=== PATIENT | male | born 1950 | race Caucasian/White ===

== ENCOUNTER 2021-06-26 23:32 | Emergency (ER) | payer OTHER, SELFPAY ==
--- NOTE | ~2021-06-26 | XR_ITS ---
EXAMINATION: XR CHEST CLINICAL INFORMATION: Fall COMPARISON: 10/19/2007 TECHNIQUE: Frontal view of the chest was obtained. FINDINGS: The lungs are well expanded. Prominent markings at both lung bases may represent scarring or atelectasis. No dense consolidation. No edema or effusion. No pneumothorax. The cardiomediastinal silhouette is normal in size with a calcified aorta. No acute osseous abnormality. XR/XR chest 1V IMPRESSION: No acute pulmonary finding. No displaced fractures.
--- NOTE | ~2021-06-26 | CT_ITS ---
EXAMINATION: NONCONTRAST HEAD CT NONCONTRAST CERVICAL SPINE CT INDICATION INFORMATION: Fall COMPARISON: None TECHNIQUE: Separate noncontrast CT examinations of the head and cervical spine were performed. Coronal and sagittal images were created for each examination at the technologist workstation. This CT examination was performed using dose optimization techniques as appropriate, variously including the following: *Automated exposure control *Adjustment of mA and/or kV according to patient size (this includes techniques or standardized protocols for targeted exams where dose is matched to indication/reason for exam; i.e. extremities or head) *Use of iterative reconstruction technique DLP: 1330 mGy-cm FINDINGS: Head: There is no evidence of acute intracranial hemorrhage or territorial infarction. No abnormal mass effect or midline shift is seen. Ho to white matter differentiation is well preserved. No extra-axial fluid collections are identified. No hydrocephalus. Proportional prominence of the ventricles and sulcal spaces is consistent with mild volume loss. Patchy periventricular and deep white matter hypoattenuation is consistent with mild small vessel ischemic changes. No acute osseous or soft tissue abnormality. Bilateral chronic lamina papyracea depression. Partial right mastoid air cell effusion. The left mastoid air cells and visualized portions of the paranasal sinuses are well aerated. Cervical spine: There is anatomic alignment of the vertebral bodies and posterior elements. The atlantoaxial and atlantooccipital articulations are intact. Vertebral body heights are maintained. There is multilevel intervertebral disc space narrowing with endplate osteophyte formation and facet arthropathy. No evidence of acute fracture. No prevertebral soft tissue swelling. Centrilobular emphysema noted at the lung apices. The thyroid gland is either absent or atrophic. CT/CT cervical spine wo con IMPRESSION: 1. No acute intracranial finding. 2. No fracture or malalignment of the cervical spine. Mild to moderate multilevel degenerative change.
[2021-06-26 23:45] VITALS: BP 130/84; PULSE 96; O2SAT 94
[2021-06-26 23:46] VITALS: BP 142/88; PULSE 89; RESP 18; TEMP 36.5; O2SAT 94; BMI 22.9
[2021-06-26 23:49] VITALS: BP 142/88; PULSE 89; RESP 18; TEMP 36.6; O2SAT 94
--- NOTE | 2021-06-27 00:09 | ED.FALL ---
HPI - Fall General Chief Complaint: Fall Stated Complaint: fall etoh Time Seen by Provider: 06/27/21 00:07 History of Present Illness HPI Narrative: Patient is a 70-year-old male status post accidental fall. Patient was intoxicated at a bar. Subsequently fell. Hit his head. There was no loss of consciousness. Patient is not on any blood thinners. Question loss of consciousness. Patient's C-spine was immobilize due to precautions. No chest pain. No abdominal pain. No pain in the extremities. Patient from a bar. Patient on no medications. He did claim P had a tetanus shot within the last year. Positive abrasion to the corner of right eye. Dry blood noted. Related Data Allergies Allergy/AdvReac Type Severity Reaction Status Date / Time No Known Allergies Allergy Verified 06/27/21 00:07 Review of Systems Review of Systems: No fever no chills no chest pain or shortness of breath no nausea no vomiting No focal weakness All systems reviewed otherwise negative PMFSH Past Medical History Attestation statement: The following information was validated with the patient. Social History Social History Alcohol intake: unknown Use of substances other than those prescribed or required for medical reasons: Unknown Advance Directives: No Physical Exam Vital Signs: Vital Signs: Last Vital Signs Temp 97.9 F 06/26/21 23:49 Pulse 89 06/26/21 23:49 Resp 18 06/26/21 23:49 BP 142/88 H 06/26/21 23:49 Pulse Ox 94 06/26/21 23:49 Body Mass Index 22.9 Appearance: Alert. Oriented X3. No acute distress. Eyes: Pupils equal, round and reactive to light. Positive dry blood to the corner of right eye. Extraocular muscle was intact. Gross vision intact. ENT: Pharynx normal. Neck: Normal inspection. No lymph nodes noted. No crepitus. C-spine was immobilized due to caution CVS: Normal heart rate and rhythm. Pulses normal. Normal S1 and S2 Respiratory: No respiratory distress. Breath sounds normal. No Wheezing. No rales Abdomen: Soft and nontender. No rigidity. No distention. good BS x4 Skin: Skin warm and dry. Normal skin color. Normal skin turgor. Extremities: No lower extremity edema. Neurovascular intact to all extremities. No Lacerations. No Rash Neuro: Oriented X 3. No motor deficit. No sensory deficit. Moving all extermities. No slurred speech MDM - Fall MDM Narrative Medical decision making narrative: CT scan of the head and C-spine were both grossly negative for any acute evidence of fracture or bleeding. Patient's alcohol was over 300 likely the cause of patient's fall. Currently awaiting sobering awaiting family member did take patient home. In stable condition. Medical Records Attestation: I reviewed the patient's medical records. Lab Data Attestation: I reviewed the patient's lab results. Result diagrams: 06/27/21 00:26 06/27/21 00:26 Labs: Lab Results 06/27/21 06/27/21 06/27/21 Range/Units 00:26 00:26 00:26 WBC 7.8 (4.8-10.8) X10*3/uL RBC 4.67 (4.60-5.80) X10*6/uL Hgb 16.1 (14.0-18.0) g/dl Hct 45.9 (42-52) % MCV 98.3 H (80-98) fL MCH 34.5 H (27.0-33.0) pg MCHC 35.1 (31.0-36.0) g/dl RDW 12.8 (11.0-16.0) % Plt Count 215 (160-400) X10*3/uL MPV 8.4 L (9.4-12.4) fL Immature Gran % (Auto) 0.3 (0.0-0.4) % Neut % (Auto) 58.7 (45-73) % Lymph % (Auto) 30.6 (20-40) % [place] % (Auto) 8.6 (2-11) % Eos % (Auto) 1.4 (0-4) % Baso % (Auto) 0.4 (0-2) % Lymph # (Auto) 2.4 (1.2-4.9) X10*3/uL [place] # (Auto) 0.7 (0.1-1.2) X10*3/uL Eos # (Auto) 0.1 (0.0-0.4) X10*3/uL Baso # (Auto) 0.0 (0.0-0.2) X10*3/uL Abs Immat Gran (auto) 0.02 (0.00-0.03) X10*3/uL Absolute Neuts (auto) 4.6 (2.0-8.3) X10*3/uL Absolute Nucleated RBC 0.000 (0.0-0.012) X10*3/uL Nucleated RBC % (auto) 0.0 (0.0-0.2) /100WBC Sodium 139 (135-145) mmol/L Potassium 3.8 (3.3-5.1) mmol/L Chloride 101 (96-108) mmol/L Carbon Dioxide 26 (22-29) mmol/L Anion Gap 16 (12-20) BUN 9 (9-16) mg/dL Creatinine 0.86 (0.5-1.4) mg/dL Estim Creat Clear Calc 82.0 Estimated GFR > 60 Random Glucose 109 (60-115) mg/dL Calcium 9.4 (8.4-10.2) mg/dL Ethyl Alcohol 327 H* mg/dL Discharge Plan Discharge Clinical Impression: Head injury, Alcohol intoxication Patient Disposition: Home, Self-Care Instructions: Head Injury (ED), Alcohol Intoxication (ED) Referrals: Physician,Unknown [Primary Care Provider] - 2 days (Please stop drinking alcohol and go to detox.)
[2021-06-27 00:30] LABS: MANUAL DIFF FLAG NO
[2021-06-27 00:31] LABS: Basophils Percent Auto 0.4 % (0-2); Eosinophils Absolute Auto 0.1 X10*3/uL (0.0-0.4); Eosinophils Percent Auto 1.4 % (0-4); Hematocrit 45.9 % (42-52); Hemoglobin 16.1 g/dl (14.0-18.0); Imm Gran Abs Auto 0.02 X10*3/uL (0.00-0.03); Imm Gran Pct Auto 0.3 % (0.0-0.4); Lymphocytes Absolute Auto 2.4 X10*3/uL (1.2-4.9); Lymphocytes Percent Auto 30.6 % (20-40); Mean Corpuscular HGB Conc 35.1 g/dl (31.0-36.0); Mean Corpuscular Hemoglobin 34.5 pg (27.0-33.0); Mean Corpuscular Volume 98.3 fL (80-98); Mean Platelet Volume 8.4 fL (9.4-12.4); Monocytes Absolute Auto 0.7 X10*3/uL (0.1-1.2); Monocytes Percent Auto 8.6 % (2-11); Neutrophils Absolute Auto 4.6 X10*3/uL (2.0-8.3); Neutrophils Percent Auto 58.7 % (45-73); Platelet Count 215 X10*3/uL (160-400); Red Blood Count 4.67 X10*6/uL (4.60-5.80); Red Cell Distribution Width 12.8 % (11.0-16.0); White Blood Count 7.8 X10*3/uL (4.8-10.8)
[2021-06-27 00:55] LABS: Ethanol 327 mg/dL
[2021-06-27 00:56] LABS: Anion Gap 16 (12-20); Blood Urea Nitrogen 9 mg/dL (9-16); Calcium 9.4 mg/dL (8.4-10.2); Carbon Dioxide 26 mmol/L (22-29); Chloride 101 mmol/L (96-108); Estimated Glomerular Filt Rate > 60; Glucose Random 109 mg/dL (60-115); Potassium 3.8 mmol/L (3.3-5.1); Sodium 139 mmol/L (135-145)
--- NOTE | 2021-06-27 02:13 | PC.NURSE ---
Pt alert and oriented, calm and cooperative. Pt educated on CT scan results. Pt denies pain. Pt moving head and neck without issues. Lacerations to forehead superficial and not bleeding. No IV in place. Pt ambulated in room to wheelchair. Pt bernieew Nick picked up patient to take home, pt transferred into car without issues. Vitals stable.
[2021-06-27 02:14] VITALS: BP 156/80; PULSE 86; RESP 18; TEMP 37; O2SAT 95
== END 2021-06-27 02:14 | disposition home or self-care (01) ==
PROVIDERS: Emergency Provider Emergency Medicine Emergency Medical Services
DX: S09.90XA Unspecified injury of head, initial encounter (principal); G44.309 Post-traumatic headache, unspecified, not intractable; F10.129 Alcohol abuse with intoxication, unspecified; M54.2 Cervicalgia; R07.81 Pleurodynia; W01.0XXA Fall on same level from slipping, tripping and stumbling without subsequent striking against object, initial encounter; Y90.8 Blood alcohol level of 240 mg/100 ml or more; Y93.9 Activity, unspecified; Y92.9 Unspecified place or not applicable; Y99.9 Unspecified external cause status; Z71.41 Alcohol abuse counseling and surveillance of alcoholic; Z79.899 Other long term (current) drug therapy
CPT/HCPCS: 36415; 70450; 71045; 72125; 80048; 82077; 85025; 99284

== ENCOUNTER 2024-08-02 23:33 | Emergency (ER) | payer MEDICARE, MEDICAID, SELFPAY ==
[2024-08-02 23:37] VITALS: BP 100/62; BP 112/74; PULSE 86; PULSE 99; RESP 15; TEMP 36.5; O2SAT 96; O2SAT 99; BMI 26.6
[2024-08-02 23:45] VITALS: BP 112/74; PULSE 94; RESP 16; TEMP 36.5; O2SAT 99
[2024-08-03 01:07] LABS: MANUAL DIFF FLAG NO
[2024-08-03 01:08] LABS: Basophils Percent Auto 0.3 % (0-2); Hematocrit 32.1 % (42.0-52.0); Hemoglobin 10.7 g/dl (14.0-18.0); Imm Gran Abs Auto 0.03 X10*3/uL (0.00-0.03); Imm Gran Pct Auto 0.3 % (0.0-0.4); Lymphocytes Absolute Auto 0.7 X10*3/uL (1.2-4.9); Lymphocytes Percent Auto 6.2 % (20-40); Mean Corpuscular HGB Conc 33.3 g/dl (31.0-36.0); Mean Corpuscular Hemoglobin 30.1 pg (27.0-33.0); Mean Corpuscular Volume 90.4 fL (80.0-98.0); Mean Platelet Volume 8.2 fL (9.4-12.4); Monocytes Absolute Auto 0.9 X10*3/uL (0.1-1.2); Monocytes Percent Auto 8.7 % (2-11); Neutrophils Absolute Auto 8.8 x10*3/uL (2.0-8.3); Neutrophils Percent Auto 84.5 % (45-73); Platelet Count 216 X10*3/uL (160-400); Red Blood Count 3.55 X10*6/uL (4.60-5.80); Red Cell Distribution Width 13.3 % (11.0-16.0); White Blood Count 10.5 X10*3/uL (4.8-10.8)
[2024-08-03 01:23] LABS: Alanine Aminotransferase 10 U/L (0-40); Alkaline Phosphatase 93 U/L (39-117); Anion Gap 18 (12-20); Aspartate Amino Transferase 35 U/L (5-37); Bilirubin Total 0.5 mg/dL (0.0-1.0); Blood Urea Nitrogen 21 mg/dL (9-16); Calcium 9.6 mg/dL (8.4-10.2); Carbon Dioxide 23 mmol/L (22-29); Chloride 103 mmol/L (96-108); Creatinine Clr Calc Pharmacy 52.1; Estimated Glomerular Filt Rate 58; Glucose Random 96 mg/dL (60-115); Potassium 4.5 mmol/L (3.3-5.1); Sodium 139 mmol/L (135-145); Total Protein 7.2 g/dL (6.5-8.0)
[2024-08-03 01:34] LABS: Appearance Urine Clear; Color Urine Dark Yellow; Glucose Urine UA Negative (Negative); Leukocyte Esterase Urine Trace (Negative); Nitrite Urine Negative (Negative); PH 6.5 (5.0-9.0); UMIC TRIGGER UACC YES; Urine Blood Negative (Negative); Urine Ketones 40 mg/dL (Negative); Urine Protein Negative (Neg-Trace)
[2024-08-03 01:48] LABS: Bacteria Urine None Seen (None Seen); RBC Urine 0-2 /HPF (0-2); Squamous Epithelial Cell Urine 0-2 /HPF (0-2); WBC Urine 0-5 /HPF (0-5)
--- NOTE | 2024-08-03 02:27 | ED_ITS ---
HPI - Weakness General Chief complaint: Weakness Stated complaint: WEAKNESS OF LEGS Time Seen by Provider: 08/03/24 00:08 Source: patient and EMS Mode of arrival: EMS Limitations: no limitations History of Present Illness ED Provider: Dr. Cadena HPI Narrative: 73yo male presents with weakness. He states at times his leg don't feel like working but tonight it was the worst. He denies chest pain, shortness of breath MD Complaint: generalized weakness Related Data Previous Rx's ?Medication ?Instructions ?Recorded ferrous sulfate 325 mg (65 mg 325 mg PO DAILY #30 tabs 08/03/24 iron) tablet folic acid 1 mg tablet 1 mg PO DAILY #30 tabs 08/03/24 Allergies Allergy/AdvReac Type Severity Reaction Status Date / Time No Known Allergies Allergy Verified 08/02/24 23:41 Review of Systems 2 Review of Systems: Yes all other systems are reviewed and are negative Neurologic: Denies Sensory deficit (Neuro) [facility] Social History Social History Alcohol intake: current Alcohol intake frequency: 3 or more drinks per day Alcohol type: hard liquor Smoked in Last 30 Days: Yes Use of substances other than those prescribed or required for medical reasons: No Advance Directives: No Advance Directives Information Provided: Yes Do you have a plan to hurt others: No Plan Physical Exam 2 Vital Signs: Vital Signs: Last Vital Signs Temp 97.7 F 08/02/24 23:45 Pulse 94 08/02/24 23:45 Resp 16 08/02/24 23:45 BP 112/74 08/02/24 23:45 Pulse Ox 99 08/02/24 23:45 O2 Del Method Room Air 08/02/24 23:45 BMI result Body Mass Index 26.6 Const: Other: very unkept male Nutritional Appearance: average body habitus Orientation/consciousness: oriented to person and patient oriented x3 Limitations: no limitations HEENT: Head: Yes normal to inspection Ears: external ears normal General nose exam: Normal external nose present Mouth: Normal oral and palatal mucosa present and oropharynx normal Throat: Yes posterior oropharynx normal Eyes: General: appearance normal, both eyes and all related structures Neck: Other: supple Neck: Yes normal visual inspection Chest: Chest palpation & inspection: normal inspection of the chest Resp: Auscultation: clear to auscultation bilaterally Cardio: Jugular venous distension: no JVD Rate: regular rate Rhythm: r egular rhythm Heart sounds: S1 normal heart sound present and S2 normal heart sound present GI: Inspection: Yes normal to inspection Palpation (GI): Soft to palpation, nontender and No hepatosplenomegaly present Auscultation: normal bowel sounds : Other: brown stool heme negative General: Yes no CVA tenderness Back/Spine/Pelvis: Back: no CVA tenderness Skin: Other: skin flaking off of feet and toes, toe nails untrimmed, hair and face unkept Neuro: General: oriented to person and patient oriented x3 Cranial nerves: Yes CN's II-XII intact bilaterally Motor exam (neuro): 5/5 motor strength present throughout Sensory Exam: No Sensory deficit (Neuro) Extrem: General: Yes normal to inspection Psych: Appearance: grossly normal Course Reevaluation(s) Reevaluation #1: patient infested with bed bugs Time: 02:34 Reevaluation #2: He is anemic but guiac negative. Likely secondary to poor nutrition will place on iron and folic acid Time: 02:36 Medical Decision Making Differential Diagnosis Differential Diagnoses: The differential diagnosis associated with the presentation includes (weakness, electrolyte abnormality, anemia, malnutrition) Admission/Observation Consideration of admission/observation: Escalation of care including admission/observation considered (upon arrival patient was considered for admission) Lab Data 08/03/24 01:02 08/03/24 01:02 Labs: Lab Results 08/03/24 08/03/24 Range/Units 01:02 01:28 WBC 10.5 (4.8-10.8) X10*3/uL RBC 3.55 L (4.60-5.80) X10*6/uL Hgb 10.7 L (14.0-18.0) g/dl Hct 32.1 L (42.0-52.0) % MCV 90.4 (80.0-98.0) fL MCH 30.1 (27.0-33.0) pg MCHC 33.3 (31.0-36.0) g/dl RDW 13.3 (11.0-16.0) % Plt Count 216 (160-400) X10*3/uL MPV 8.2 L (9.4-12.4) fL Immature Gran % (Auto) 0.3 (0.0-0.4) % Neut % (Auto) 84.5 H (45-73) % Lymph % (Auto) 6.2 L (20-40) % [place] % (Auto) 8.7 (2-11) % Eos % (Auto) 0.0 (0-4) % Baso % (Auto) 0.3 (0-2) % Lymph # (Auto) 0.7 L (1.2-4.9) X10*3/uL [place] # (Auto) 0.9 (0.1-1.2) X10*3/uL Eos # (Auto) 0.0 (0.0-0.4) X10*3/uL Baso # (Auto) 0.0 (0.0-0.2) X10*3/uL Abs Immat Gran (auto) 0.03 (0.00-0.03) X10*3/uL Absolute Neuts (auto) 8.8 H (2.0-8.3) x10*3/uL Absolute Nucleated RBC 0.000 (0.0-0.012) X10*3/uL Nucleated RBC % (auto) 0.0 (0.0-0.2) /100WBC Sodium 139 (135-145) mmol/L Potassium 4.5 (3.3-5.1) mmol/L Chloride 103 (96-108) mmol/L Carbon Dioxide 23 (22-29) mmol/L Anion Gap 18 (12-20) BUN 21 H (9-16) mg/dL Creatinine 1.22 (0.5-1.4) mg/dL Estim Creat Clear Calc 52.1 Estimated GFR 58 Random Glucose 96 (60-115) mg/dL Calcium 9.6 (8.4-10.2) mg/dL Total Bilirubin 0.5 (0.0-1.0) mg/dL AST 35 (5-37) U/L ALT 10 (0-40) U/L Alkaline Phosphatase 93 (39-117) U/L Total Protein 7.2 (6.5-8.0) g/dL Albumin 4.0 (3.5-5.0) g/dL Urine Color Dark Yellow Urine Appearance Clear Urine pH 6.5 (5.0-9.0) Ur Specific [place] 1.020 (1.005-1.025) Urine Protein Negative (Neg-Trace) mg/dL Urine Glucose (UA) Negative (Negative) mg/dL Urine Ketones 40 (Negative) mg/dL Urine Blood Negative (Negative) Urine Nitrite Negative (Negative) Ur Leukocyte Esterase Trace H (Negative) Urine RBC 0-2 (0-2) /HPF Urine WBC 0-5 (0-5) /HPF Ur Squamous Epith Cells 0-2 (0-2) /HPF Urine Bacteria None Seen (None Seen) Hyaline Casts 11-20 (0-2) /LPF Independent Historian Clinical information obtained from an independent historian. History obtained from or confirmed by: EMS Tests considered The following testing was considered but not selected: Head CT considered but patient is nonfocal Social Determinants Patient?s care significantly limited by Social Determinants of Health including: Inadequate housing and Low income Discharge Plan Discharge Clinical Impression: Weakness, Anemia Patient Disposition: Home, Self-Care Instructions: Weakness (ED), Anemia (ED) Prescriptions: New ferrous sulfate 325 mg (65 mg iron) tablet 325 mg PO DAILY Qty: 30 0RF folic acid 1 mg tablet 1 mg PO DAILY Qty: 30 0RF Referrals: Gloria Singh MD [Primary Care Provider] - 1 week Print Language: Citizen Of [place]
--- NOTE | 2024-08-03 02:49 | PC.NURSE ---
Patient noted to have bed bug outbreak. Patient moved to [facility] that has a door and thus a barrier to help contain. All clothing was stripped off the patient and double bagged. All linens were stripped and placed in biohazard bags. Environmental called for assistance.
[2024-08-03 06:37] VITALS: BP 117/72; PULSE 91; RESP 16; TEMP 36.7; O2SAT 98
--- NOTE | 2024-08-03 08:15 | MHC.EDTECH ---
gave pt breakfast tray
[2024-08-03 08:38] VITALS: BP 109/63
[2024-08-03] MEDS: amLODIPine Besylate 5 MG TABLET PO (08:38)
[2024-08-03] MEDS: Levothyroxine Sodium 100 MCG TABLET PO (08:38)
[2024-08-03 08:40] VITALS: BP 109/63; PULSE 87; RESP 16; TEMP 36.3; O2SAT 99
--- NOTE | 2024-08-03 08:47 | PC.NURSE ---
Patient alert and oriented x 3. Patient only ate the banana on his breakfast tray and requested a coffee with one sugar. Gave morning medications. Patient denies any pain. Physical therapy came to do their assessment. Patient was not able to walk or get up. Will continue with plan of care.
--- NOTE | 2024-08-03 11:27 | MHC.CM.PN ---
CM RECEIVED ED CONSULT FROM PROVIDER. CM MET WITH PT IN ED. LIVES WITH SISTER. NO CURRENT SERVICES PT USES [facility] FOR MOBILITY. +HCP NAMING HIS SISTER. PCP DR.LAUREN KALEB Domingo. REC STR, PT IS AGREEABLE TO THIS BUT WOULD LIKE TO STAY CLOSER TO HOME. CM WILL SEND OUT BROAD REFERRALS FOR PLACEMENT. CM WILL CONTINUE TO FOLLOW FOR PLAN.
[2024-08-03 13:16] VITALS: BP 101/63; PULSE 88; RESP 18; TEMP 36.6; O2SAT 100
[2024-08-03 18:19] VITALS: BP 128/76; PULSE 76; RESP 18; TEMP 36.6; O2SAT 98
[2024-08-03] MEDS: Atorvastatin Calcium 40 MG TABLET PO (21:39)
[2024-08-03 22:45] VITALS: BP 118/66; PULSE 78; RESP 18; TEMP 36.7; O2SAT 98
[2024-08-04 07:34] VITALS: BP 95/63
[2024-08-04] MEDS: amLODIPine Besylate 5 MG TABLET PO (07:34)
[2024-08-04] MEDS: Levothyroxine Sodium 100 MCG TABLET PO (07:36)
[2024-08-04 08:02] VITALS: BP 95/63; PULSE 80; RESP 16; O2SAT 97
--- NOTE | 2024-08-04 08:02 | PC.NURSE ---
PT GIVEN BKFST TRAY. ALERT AND ORIENTED. URINAL EMPTIED FOR 700ML OF URINE
--- NOTE | 2024-08-04 10:36 | PHA.MEDREC ---
Addendum entered by Nicky Whyte RPh 08/04/24 10:50: Reviewed by [facility] Original Note: Pharmacy Consult ? Medication Reconciliation Pharmacy has completed the medication reconciliation. Reviewed med rec done by nursing.
--- NOTE | 2024-08-04 12:01 | MHC.CM.PN ---
CM CONTINUES TO SEARCH FOR STR REHAB BED, REFERRALS OUT. CM SPOKE WITH SISTER ANNA RUEDA ([phone]) WITH PT'S PERMISSION. ANNA IS WILLING TO BUY NEW ITEMS FOR PT TO BRING TO REHAB ONCE BED IS SECURED. SISTER UNDERSTANDS THESE ITEMS MUST BE BRAND NEW. CM WILL CONTINUE TO FOLLOW
[2024-08-04 14:03] VITALS: BP 125/73; PULSE 82; RESP 17; TEMP 37.2; O2SAT 97
[2024-08-04 18:44] VITALS: BP 110/73; PULSE 73; RESP 16; TEMP 36.6; O2SAT 99
[2024-08-04 21:12] VITALS: BP 97/71; PULSE 92; RESP 16; TEMP 36.7; O2SAT 97
[2024-08-04] MEDS: Atorvastatin Calcium 40 MG TABLET PO (21:12)
--- NOTE | 2024-08-04 22:57 | PC.NURSE ---
pt sleeping at this time.
[2024-08-05 00:20] VITALS: BP 96/60; PULSE 70; RESP 18; TEMP 36.3; O2SAT 95
--- NOTE | 2024-08-05 00:44 | PC.NURSE ---
Vitals taken, pt resting in bed, no sign of distress.
--- NOTE | 2024-08-05 00:48 | PC.NURSE ---
pt able to answer question, reports is weaker than normal, provider into assess pt, pt taken to CT scan. Will medicate per mar.
--- NOTE | 2024-08-05 02:59 | PC.NURSE ---
pt resting in bed, no sign of distress.
[2024-08-05] MEDS: Levothyroxine Sodium 100 MCG TABLET PO (07:28)
--- NOTE | 2024-08-05 07:31 | PC.NURSE ---
pt medicated per mar, 500ml urine emptied from urinal, pt a&ox3, resting quietly, denies any pain.
--- NOTE | 2024-08-05 09:37 | PC.NURSE ---
kitchen contacted for missing breakfast tray.
[2024-08-05 10:07] VITALS: BP 124/79; PULSE 91; RESP 20; TEMP 37; O2SAT 94
[2024-08-05] MEDS: amLODIPine Besylate 5 MG TABLET PO (10:23)
--- NOTE | 2024-08-05 10:38 | MHC.CM.ED ---
Patient remains in ER overflow. No bed offers at this time. Referral broadcasted within 50 miles. Continue to monitor for d/c needs.
[2024-08-05 11:09] LABS: COVID-19 Test Negative (Negative); IDNOW Serial# 6674DD1D
[2024-08-05 14:00] VITALS: BP 109/69; PULSE 87; RESP 17; TEMP 36.9; O2SAT 94
[2024-08-05] MEDS: Atorvastatin Calcium 40 MG TABLET PO (20:08)
[2024-08-05 20:27] VITALS: BP 109/66; PULSE 92; RESP 20; TEMP 37.1; O2SAT 94
[2024-08-06 06:00] VITALS: BP 110/71; PULSE 87; RESP 18; TEMP 37.1; O2SAT 93
[2024-08-06] MEDS: Levothyroxine Sodium 100 MCG TABLET PO (06:25)
[2024-08-06] MEDS: amLODIPine Besylate 5 MG TABLET PO (08:24)
--- NOTE | 2024-08-06 10:11 | MHC.CM.ED ---
Addendum entered by Ashley Gibson 08/06/24 14:07: Clarification on ETOH use: patient only drinks 3 times a week. No withdrawal symptoms seen while at [facility] ER. Addendum entered by Ashley Gibson 08/06/24 10:46: Transport booked for 08/07 at 9am. [facility] with chart. Patient, sister Fany Contreras RN and Sarah POLLACK aware. Original Note: Patient remains in ER overflow. [facility] and [facility] are the only facilities that are able to offer a bed. Spoke with patient and sister, Diane, in regards to discharge planning. Bed accetped at [facility]. Will need [facility] leveling approval from [facility] before patient can transfer. Diane will provide new clothes for patient. Continue to monitor for d/c needs.
[2024-08-06 11:33] VITALS: BP 110/68; PULSE 88; RESP 16; TEMP 36.6; O2SAT 95
--- NOTE | 2024-08-06 19:15 | PC.NURSE ---
received report from previous nurse, assume care of pt at this time
[2024-08-06 20:00] VITALS: BP 123/71; PULSE 80; RESP 20; TEMP 36.8; O2SAT 92
[2024-08-06] MEDS: Atorvastatin Calcium 40 MG TABLET PO (21:13)
--- NOTE | 2024-08-06 21:24 | PC.NURSE ---
per family, please throw old clothes, that is tied up, into the garbage. family brought new clothes for him to go to rehab with
[2024-08-07 06:00] VITALS: BP 114/71; PULSE 83; RESP 12; TEMP 36.7; O2SAT 94
[2024-08-07] MEDS: Levothyroxine Sodium 100 MCG TABLET PO (06:25)
--- NOTE | 2024-08-07 07:07 | PC.NURSE ---
report given to Edgardo MCGILL
[2024-08-07] MEDS: amLODIPine Besylate 5 MG TABLET PO (08:33)
--- NOTE | 2024-08-07 09:33 | PC.NURSE ---
report given to facility. precautions maintained. pt updated. no acute issues or complications this shift
== END 2024-08-07 10:12 ==
PROVIDERS: Physician Assistant Medical; Emergency Provider Emergency Medicine; PCP Internal Medicine
DX: R53.1 Weakness (principal); D64.9 Anemia, unspecified; T14.8XXA Other injury of unspecified body region, initial encounter; W57.XXXA Bitten or stung by nonvenomous insect and other nonvenomous arthropods, initial encounter; Y93.9 Activity, unspecified; Y92.9 Unspecified place or not applicable; Y99.9 Unspecified external cause status
CPT/HCPCS: 36415; 80053; 81001; 85025; 87635; 97161; 99285